=== PATIENT | male | born 1975 | race African-American/Black ===

== ENCOUNTER 2016-12-28 19:30 | Emergency (ER) ==
--- NOTE | 2016-12-28 20:45 | PROVIDER DOCUMENTATION ---
HPI-Headache - General Chief Complaint: Headache Stated Complaint: DIZZINESS,VOMITING,HEADACHE Time Seen by Provider: 12/28/16 20:37 Source: patient Allergies/Adverse Reactions: Patient Allergies Allergy/AdvReac Type Severity Reaction Status Date / Time No Known Allergies Allergy Verified 12/28/16 20:35 Home Medications: Home Medication List Medication Instructions Recorded Confirmed Last Taken Type No Home Medications 12/28/16 12/28/16 Unknown History - History of Present Illness-Headache Nature of Presenting Problem: 41 Y/O M presents to ED with headache. Pt states that it began 3hrs [employer] and has a hx of migraines. States generally has photophobia. States he had Vomiting and Nausea. States laying down when symptoms began and diaphoresis, weakness with standing. Headache Location: reports: frontal Quality of Pain: reports: aching Severity: reports: mild, moderate Onset/Duration: reports: this morning Timing: reports: still present Headache Context: reports: nothing Headache History: reports: history of migraines Any recent trauma/injury?: reports: none Associated Symptoms: reports: headache, dizziness, vomiting Review of Systems - Adult - REVIEW OF SYSTEMS - ADULT Constitutional: denies: chills, fever Eyes: reports: no symptoms reported Ears, Nose, Mouth & Throat: reports: no symptoms reported Cardiovascular: reports: no symptoms reported Respiratory: reports: no symptoms reported Gastrointestinal: reports: nausea, vomiting. denies: abdominal pain, diarrhea Genitourinary: reports: no symptoms reported Musculoskeletal: reports: no symptoms reported Integumentary: reports: no symptoms reported Neurological: reports: dizziness/vertigo, headache/migraines. denies: loss of balance Psychiatric: reports: no symptoms reported Endocrine: reports: no symptoms reported Hematologic/Lymphatic: reports: no symptoms reported Allergic/Immunologic: reports: no symptoms reported All Other Systems: Reviewed and Negative Past History - Adult - PAST MEDICAL HISTORY-ADULT Review of Records: reports: Old Records Reviewed, Nursing Assessment Review, Medications Reviewed, Social history reviewed & non-contributory. Major Childhood Illnesses: reports: denies history Cardiovascular: reports: denies history Respiratory: reports: denies history Gastrointestinal: reports: denies history Obstetrical/Gynecological: reports: denies history Genitourinary: reports: denies history Musculoskeletal: reports: denies history Neurological: reports: denies history Endocrine/Immune: reports: denies history Other Conditions: reports: denies history - SOCIAL HISTORY Smoking: cigarettes, greater than 1 pack/day Substance Use: none/never Alcohol Use Frequency: sober (former use) Living Situation: family Physical Exam- Neurological - Physical Exam-Neuro Initial Vital Signs Reviewed: Yes General Appearance: appears well, alert, no apparent distress Eye Exam: bilateral eye: normal inspection, PERRL, EOMI HENMT: normocephalic/atraumatic, moist mucous membranes, normal ENT inspection, TMs normal, pharynx normal Head Injury: no evidence of injury Neck: non-tender, full range of motion, supple, normal inspection Respiratory: chest non-tender, lungs clear, normal breath sounds Cardiovascular: normal peripheral pulses, regular rate, rhythm Abdominal Exam: normal bowel sounds, non tender, soft Lymphatic: no adenopathy Extremity: normal range of motion, non-tender, normal gait integration analyst Exam: normal hearing, normal speech, PERRL Coordination/Gait: normal finger to nose Motor/Sensory: no motor deficit, no sensory deficit, no pronator drift Neurologic: integration analyst II-XII nml as tested Integumentary: normal color, normal turgor, warm/dry Psych/Mental Status: normal mood/affect, normal thought content, normal thought process, oriented x 3 - Glascow Coma Scale Best Eye Response: (4) open spontaneously Best Verbal Response: (5) oriented Best Motor Response: (6) obeys commands Total Glascow Score: 15 Progress - PLAN OF CARE/RESULTS Progress/Plan/Lab Results: Laboratory Tests 12/28/16 20:48 POC Glucose 80 Orders Category Date Time Status Finger Stick Blood Sugar (ED) DIRECTED Care 12/28/16 20:47 Active Promethazine [Phenergan] Med 12/28/16 20:47 Discontinued 25 mg IM NOW ONE Vital Signs - 24 hr 12/28/16 12/28/16 19:59 21:27 Temperature 98 F 98.3 F Pulse Rate 64 72 Respiratory 18 20 Rate Blood Pressure 142/86 137/89 O2 Sat by Pulse 100 99 Oximetry Departure - Departure Time of Disposition Order: 21:27 DIAGNOSIS: Headache Qualifiers: Headache type: unspecified Headache chronicity pattern: unspecified pattern Intractability: not intractable Qualified Code(s): R51 - Headache Disposition: HOME 01 Certified Medical Emergency: Emergent Condition: Stable Referrals: None,PCP [Primary Care Provider] - Forms: Return to School/Parent Work Instructions: Headache, FAQs, Migraine Headache, [id number] Attestation - Scribe Verification/Attestation Scribe:: Sheba Mcmullen Acting as Scribe for:: Rafiq Gillette Scribe documention review:: This chart was documented by a scribe and accurately reflects the service the provider performed and the decisions made by the provider.
[2016-12-28] MEDS ORDERED: PHENERGAN IM ONE (20:47)
[2016-12-28 21:29] VITALS: BP 137/89
== END 2016-12-28 21:29 | disposition home or self-care (01) ==
LOC: P.ED 19:30
DX: R51 Headache (principal); R42 Dizziness and giddiness; R11.2 Nausea with vomiting, unspecified; F17.210 Nicotine dependence, cigarettes, uncomplicated
CPT/HCPCS: 82948; J2550